=== PATIENT | male | born 1955 | race Caucasian/White ===

== ENCOUNTER 2024-05-12 13:37 | Emergency (ER) | payer OTHER, SELFPAY ==
[2024-05-12 13:40] VITALS: BP 177/74; PULSE 95; TEMP 36.6; O2SAT 97; BMI 20.8
--- NOTE | 2024-05-12 13:44 | XR_ITS ---
The [address] [address] Patient Name: MILAGROS VÁZQUEZ MRN: [id number] date: 1955 Sex: M Assigned Patient Location: ED.MAIN Current Patient Location: Accession/Order Number: [id number] Exam Date: 05/12/2024 14:25 Report Date: 05/12/2024 15:19 At the request of: ADDIS CERNA Procedure: XR hand RT min 3V IMAGES REVIEWED: XR hand RT min 3V COMPARISON: None available. CLINICAL INDICATION: Trauma FINDINGS/IMPRESSION: 1. Acute comminuted mildly displaced and mildly impacted likely intra-articular fractures of the proximal shaft-base third metacarpal and the fourth metacarpal base. 2. On the lateral view posteriorly displaced fracture of the third metacarpal base with foreshortening, the majority of the articular surface of the third metacarpal base is not dislocated. 3. Questionable slight focal impaction deformity involving the ulnar aspect of the second metacarpal base on the frontal view. 4. Slight deformity of the ulnar aspect of the third DIP joint is chronic. Electronically authenticated by: LEELA PENNY Date: 05/12/2024 15:19
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
== END 2024-05-12 15:15 | disposition home or self-care (01) ==
PROVIDERS: Emergency Provider Emergency Medicine Emergency Medical Services
DX: S62.302A Unspecified fracture of third metacarpal bone, right hand, initial encounter for closed fracture (principal); S62.304A Unspecified fracture of fourth metacarpal bone, right hand, initial encounter for closed fracture; V43.52XA Car driver injured in collision with other type car in traffic accident, initial encounter
CPT/HCPCS: 73130; 99283

== ENCOUNTER 2024-05-20 09:26 | Outpatient (OUT) | payer OTHER, SELFPAY ==
--- NOTE | 2024-05-20 | XR_ITS ---
[address] [address] Patient Name: MILAGROS VÁZQUEZ MRN: [id number] date: 1955 Sex: M Assigned Patient Location: Current Patient Location: Accession/Order Number: [id number] Exam Date: 05/20/2024 09:28 Report Date: 05/21/2024 18:27 At the request of: REYNA KAUFMAN Procedure: XR hand RT min 3V EXAM: XR hand RT min 3V HISTORY: RIGHT HAND PAIN COMPARISON: 05/12/2024 FINDINGS/IMPRESSION: 1. Oblique fracture of the proximal third metacarpal. Mildly displaced transverse fracture of the proximal fourth metacarpal. Similar alignment as compared to the prior examination. 2. No significant joint degeneration. 3. Normal alignment of the carpus. Scapholunate and lunotriquetral intervals are maintained. Electronically authenticated by: DEVEN MOLINA Date: 05/21/2024 18:27
--- OUTSIDE RECORDS SUMMARY | 2024-05-20 09:39 | XMS_ITS | CCD ---
Author Organization [facility] Care Team Providers Care Food Product Inspector Name Role Phone HERMINIO DEGE Attending Unavailable Unavailable Primary Care Provider Unavailabl e Medications Current Medications Medication Drug Class(es) Dates Sig (Normalized) Sig (Original) cephalexin 500 mg oral capsule (1 source) Cephalosporin Antibacterial Start: 10-10-2019 End: 10-17-2019 take 1 capsule by mouth three times daily cephALEXin (KEFLEX) 500 MG capsule Take 1 capsule by mouth 3 times daily for 7 days 21 capsule 0 10/10/2019 10/17/2019 Active Completed/Discontinued Medications Medication Drug Class(es) Dates Sig (Normalized) Sig (Original) 10 ml lidocaine hydrochloride 10 mg/ml injection (1 source) Antiarrhythmic, Amide Local Anesthetic Start: 10-10-2019 End: 10-10-2019 lidocaine 1 % injection 5 mL Problems Problem Classification Problem Date Documented Da te Episodic/Chronic Open wounds of extremities (1 source) Laceration of index finger Episodic Results Test Name Value Interpretation Reference Range Facil ity Lab - Toxicology Resultson 0 01-19-2018 Lab - Toxicology Results [id number] 7F#1.00OTGTIFF [facility] Drug Test Panel 10 018 Drug Screen Complete Collected [facility] Comment on above: Performed By: #### [id number] ####[facility] (DEFAULT)[address] [place] [address] Vital Signs Date Time Vital Sign Value Performing Clinician Nickii litmorris 10-10-2019 11:33-0500 Body height 175.3 cm Herminio Edge MD Work Phone: [facility] [employer] Work Phone: 10-10-2019 11:33-0500 Body mass index (BMI) [Ratio] 16.39 kg/m2 Herminio Edge MD Work Phone: [employer] Work Phone: 10-10-2019 11:33-0500 Body temperature 97.9 [degF] Herminio Edge MD Work Phone: [employer] Work Phone: 10-10-2019 11:33-0500 Body weight 50.35 kg Herminio Edge MD Work Phone: [employer] Work Phone: 10-10-2019 11:33-0500 Diastolic blood pressure 78 mm[Hg] Herminio Edge MD Work Phone: [employer] Work Phone: 10-10-2019 11:33-0500 Heart rate 88 /min Herminio Edge MD Work Phone: [employer] Work Phone: 10-10-2019 11:33-0500 Respiratory rate 18 /min Herminio Edge MD Work Phone: [employer] Work Phone: 10-10-2019 11:33-0500 SaO2% (BldA) [Mass fraction] 100 % Herminio Edge MD Work Phone: [employer] Work Phone: 10-10-2019 11:33-0500 Systolic blood pressure 193 mm[Hg] Herminio Edge MD Work Phone: [employer] Work Phone: Encounters Encounter Date Encounter Type Care Provider Facility Start: 10-10-2019 End: 10-10-2019 [facility] Start: 10-10-2019 End: 10-10-2019 Emergency department patient visit Herminio Edge MD Work Phone: [facility] ED Comment on above: Laceration of right index finger without foreign body without damage to nail, initial encounter (Primary Dx) Start: 01-16-2018 End: 01-16-2018 Ambulatory Facility:[facility] Plan of Treatment Date Care Activity Detail Author Start: 05-12-2019 Influenza vaccination Flu vaccine (# 1) [employer] Phone: Immunizations Immunization Date Immunization Notes Care Provider Fa cility 10-10-2019 tetanus toxoid, redu sancho diphtheria toxoid, and acellular pertussis vaccine, adsorbed Herminio Edge MD Work Phone: [employer] Phone: 10-10-2019 diphtheria, tetanus toxoids and acellular pertussis vaccine, unspecified formulation Herminio Edge MD Work Phone: [employer] Phone: Social History Date Type Detail Facility Start: 10-10-2019 Tobacco smoking status NHIS Never sm oker [employer] Phone: Sex Assigned At Not on file [employer] Phone: Evaluation note Note Date & Type Note Facility Evaluation note Diagnosis Laceration of right index finger without foreign body without damage to nail, initial encounter- Primary documented in this encounter [employer] Phone: Hospital Discharge instructions Attachments Note Date & Type Note Facility Hospital Discharge instructions The following attachments cannot be sent through Care Everywhere.Hand Laceration: Stitches (Danish)documented in this encounter [employer] Phone: Summary Purpose Family History No Family History Records FoundNo Family History Records Found Advance Directives Documents on File Type Date 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 FOR RECORDS PERTAINING TO PATIENTS WHO ARE OR HAVE BEEN ENROLLED IN A CHEMICAL DEPENDENCY/SUBSTANCEABUSE PROGRAM, SOME INFORMATION MAY BE OMITTED. This clinical summary was aggregated from multiple sources. Caution should be exercised in using it in the provision of clinical care. This summary normalizes information from multiple sources, and as a consequence, information in this document may materially change the coding, format and clinical context of patient data. In addition, data may be omitted in some cases. CLINICAL DECISIONS SHOULD BE BASED ON THE PRIMARY CLINICAL RECORDS. [facility] [employer] [facility]. provides no warranty or guarantee of the accuracy or completeness of information in this document.
== END 2024-05-20 09:27 | disposition home or self-care (01) ==
LOC: EC 09:26
PROVIDERS: Visit Provider Orthopaedic Surgery
DX: S62.302D Unspecified fracture of third metacarpal bone, right hand, subsequent encounter for fracture with routine healing (principal); S62.304D Unspecified fracture of fourth metacarpal bone, right hand, subsequent encounter for fracture with routine healing
CPT/HCPCS: 73130

== ENCOUNTER 2024-05-27 07:58 | Outpatient (OUT) | payer OTHER, SELFPAY ==
--- NOTE | 2024-05-27 | XR_ITS ---
The [address] [address] Patient Name: MILAGROS VÁZQUEZ MRN: [id number] date: 1955 Sex: M Assigned Patient Location: Current Patient Location: Accession/Order Number: [id number] Exam Date: 05/27/2024 08:10 Report Date: 05/29/2024 07:45 At the request of: REYNA KAUFMAN Procedure: XR hand RT min 3V PROCEDURE: XR hand RT min 3V COMPARISON: 05/20/2024 HISTORY: RIGHT HAND PAIN FINDINGS: BONES:Stable fractures along the base of the second third and fourth metacarpals likely extending to the articular surface. No significant bone formation or callus formation. No new fracture or dislocation. SOFT TISSUES:Negative. No visible soft tissue swelling. EFFUSION:None visible. OTHER: Negative. XR/XR hand RT min 3V IMPRESSION: Stable fractures base of the second third and fourth metacarpals Electronically authenticated by: MILAGROS HUDSON Date: 05/29/2024 07:45
--- OUTSIDE RECORDS SUMMARY | 2024-05-27 08:02 | XMS_ITS | CCD ---
Author Organization [facility] Care Team Providers Care Hair Dryer Name Role Phone HERMINIO EDGE Attending Unavailable Unavailable Primary Care Provider Unavailabl [...] 0 01-19-2018 Lab - Toxicology Results [id number] 7F#1.00OTGTIFF [facility] Drug Test Panel 10 018 Drug Screen Complete Collected [facility] Comment on above: Performed By: #### [id number] ####[facility] (DEFAULT)[address] [place] [address] Vital Signs Date Time Vital Sign Value Performing Clinician Nickii litmorris 10-10-2019 11:33-0500 Body height 175.3 cm Herminio Edge MD Work Phone: [facility] Work Phone: 10-10-2019 11:33-0500 Body mass index (BMI) [Ratio] 16.39 kg/m2 Herminio Edge MD Work Phone: [employer] Work Phone: 10-10-2019 11:33-0500 Body temperature 97.9 [degF] Herminio Edge MD Work Phone: [employer] Work Phone: 10-10-2019 11:33-0500 Body weight 50.35 kg Herminio Edge MD Work Phone: [employer] Work Phone: 10-10-2019 11:33-0500 Diastolic blood pressure 78 mm[Hg] Herminio Edge MD Work Phone: [employer] Work Phone: 10-10-2019 11:33-0500 Heart rate 88 /min Herminio Edge MD Work Phone: [employer] Work Phone: 10-10-2019 11:33-0500 Respiratory rate 18 /min Herminio Edge MD Work Phone: [employer] Work Phone: 10-10-2019 11:33-0500 SaO2% (BldA) [Mass fraction] 100 % Herminio Edge MD Work Phone: [employer] Work Phone: 10-10-2019 11:33-0500 Systolic blood pressure 193 mm[Hg] Herminio Edge MD Work Phone: [employer] Work Phone: Encounters Encounter Date Encounter Type Care Provider Facility Start: 10-10-2019 End: 10-10-2019 [facility] Start: 10-10-2019 End: 10-10-2019 Emergency department patient visit Herminio Edge MD Work Phone: [facility] ED Comment on above: Laceration of right index finger without foreign body without damage to nail, initial encounter (Primary Dx) Start: 01-16-2018 End: 01-16-2018 Ambulatory Facility:[facility] Plan of Treatment Date Care Activity Detail Author Start: 05-12-2019 Influenza vaccination Flu vaccine (# 1) [employer] Phone: Immunizations Immunization Date Immunization Notes Care Provider Fa cility 10-10-2019 tetanus toxoid, redu sancho diphtheria toxoid, and acellular pertussis vaccine, adsorbed Herminio Edge MD Work Phone: [employer] Phone: 10-10-2019 diphtheria, tetanus toxoids and acellular pertussis vaccine, unspecified formulation Herminio Edge MD Work Phone: [employer] Phone: Social History Date Type Detail Facility Start: 10-10-2019 Tobacco smoking status NHIS Never sm oker [employer] Phone: Sex Assigned At Not on file [employer] Phone: Evaluation note Note Date & Type Note Facility Evaluation note Diagnosis Laceration of right index finger without foreign body without damage to nail, initial encounter- Primary documented in this encounter [employer] Phone: Hospital Discharge instructions Attachments Note Date & Type Note Facility Hospital Discharge instructions The following attachments cannot be sent through Care Everywhere.Hand Laceration: Stitches ([place])documented in this encounter [employer] Phone: Summary Purpose Family History No Family History Records FoundNo Family History Records Found Advance Directives Documents on File Type Date 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 [facility]. provides no warranty or guarantee of the accuracy or completeness of information in this document.
== END 2024-05-27 07:59 | disposition home or self-care (01) ==
PROVIDERS: Visit Provider Orthopaedic Surgery
DX: S62.304D Unspecified fracture of fourth metacarpal bone, right hand, subsequent encounter for fracture with routine healing (principal); S62.302D Unspecified fracture of third metacarpal bone, right hand, subsequent encounter for fracture with routine healing
CPT/HCPCS: 73130

== ENCOUNTER 2024-06-10 08:44 | Outpatient (OUT) | payer OTHER, SELFPAY ==
--- NOTE | 2024-06-10 | XR_ITS ---
The [address] [address] Patient Name: MILAGROS VÁZQUEZ MRN: [id number] date: 1955 Sex: M Assigned Patient Location: Current Patient Location: Accession/Order Number: [id number] Exam Date: 06/10/2024 08:45 Report Date: 06/11/2024 05:32 At the request of: REYNA KAUFMAN Procedure: XR hand RT min 3V PROCEDURE: XR hand RT min 3V HISTORY: RIGHT HAND PAIN COMPARISON: XR hand right 05/27/2024 FINDINGS: BONES:Subacute fracture along the proximal medial margin of the third metacarpal slightly displaced fragment. SOFT TISSUES:Soft tissue swelling of the hand. EFFUSION:None visible. OTHER: Negative. XR/XR hand RT min 3V IMPRESSION: 1. Images were obtained to cast material which slightly limits evaluation. 2. Stable alignments and no appreciable early bone changes involving the third metacarpal fracture. Electronically authenticated by: REYNA DIOP Date: 06/11/2024 05:32
--- OUTSIDE RECORDS SUMMARY | 2024-06-10 09:04 | XMS_ITS | CCD ---
Author Organization [facility] Care Team Providers Care Car Painter Name Role Phone HERMINIO EDGE Attending Unavailable [...] 0 01-19-2018 Lab - Toxicology Results [id number] 7F#1.00OTGTIFF [facility] Drug Test Panel 10 018 Drug Screen Complete Collected [facility] Comment on above: Performed By: #### [id number] ####[facility] (DEFAULT)[address] [place] [address] Vital Signs Date Time Vital Sign Value Performing Clinician Nickii litmorris 10-10-2019 11:33-0500 Body height 175.3 cm Herminio Edge MD Work Phone: [facility] [employer] Work Phone: 10-10-2019 11:33-0500 Body mass index (BMI) [Ratio] 16.39 kg/m2 Herminio Edge MD Work Phone: [employer] Work Phone: 10-10-2019 11:33-0500 Body temperature 97.9 [degF] Herminio Edge MD Work Phone: [employer] Work Phone: 10-10-2019 11:33-0500 Body weight 50.35 kg Herminio Edge MD Work Phone: [employer] Work Phone: 10-10-2019 11:33-0500 Diastolic blood pressure 78 mm[Hg] Herminio Edge MD Work Phone: [employer] Work Phone: 10-10-2019 11:33-0500 Heart rate 88 /min Herminio Edge MD Work Phone: [employer] Work Phone: 10-10-2019 11:33-0500 Respiratory rate 18 /min Herminio Edge MD Work Phone: [employer] Work Phone: 10-10-2019 11:33-0500 SaO2% (BldA) [Mass fraction] 100 % Herminio Edge MD Work Phone: [employer] Work Phone: 10-10-2019 11:33-0500 Systolic blood pressure 193 mm[Hg] Herminio Edge MD Work Phone: [employer] Work Phone: Encounters Encounter Date Encounter Type Care Provider Facility Start: 10-10-2019 End: 10-10-2019 [facility] Start: 10-10-2019 End: 10-10-2019 Emergency department patient visit Herminio Edge MD Work Phone: [facility] ED Comment on above: Laceration of right index finger without foreign body without damage to nail, initial encounter (Primary Dx) Start: 01-16-2018 End: 01-16-2018 Ambulatory Facility:[facility] Plan of Treatment Date Care Activity Detail Author Start: 05-12-2019 Influenza vaccination Flu vaccine (# 1) [employer] Phone: Immunizations Immunization Date Immunization Notes Care Provider Fa cility 10-10-2019 tetanus toxoid, redu sancho diphtheria toxoid, and acellular pertussis vaccine, adsorbed Herminio Edge MD Work Phone: [employer] Phone: 10-10-2019 diphtheria, tetanus toxoids and acellular pertussis vaccine, unspecified formulation Herminio Edge MD Work Phone: [employer] Phone: Social History Date Type Detail Facility Start: 10-10-2019 Tobacco smoking status NHIS Never sm oker [employer] Phone: Sex Assigned At Not on file [employer] Phone: Evaluation note Note Date & Type Note Facility Evaluation note Diagnosis Laceration of right index finger without foreign body without damage to nail, initial encounter- Primary documented in this encounter [employer] Phone: Hospital Discharge instructions Attachments Note Date & Type Note Facility Hospital Discharge instructions The following attachments cannot be sent through Care Everywhere.Hand Laceration: Stitches (Swiss)documented in this encounter [employer] Phone: Summary Purpose Family History No Family History Records FoundNo Family History Records Found Advance Directives Documents on File Type Date Recorded 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 [facility] [facility]. provides no warranty or guarantee of the accuracy or completeness of information in this document.
== END 2024-06-10 08:45 | disposition home or self-care (01) ==
LOC: EC 08:44
PROVIDERS: Visit Provider Orthopaedic Surgery
DX: S62.304D Unspecified fracture of fourth metacarpal bone, right hand, subsequent encounter for fracture with routine healing (principal); S62.302D Unspecified fracture of third metacarpal bone, right hand, subsequent encounter for fracture with routine healing
CPT/HCPCS: 73130

== ENCOUNTER 2024-07-08 09:10 | Outpatient (OUT) | payer OTHER, SELFPAY ==
--- NOTE | 2024-07-08 | XR_ITS ---
The [address] [address] Patient Name: MILAGROS VÁZQUEZ MRN: [id number] date: 1955 Sex: M Assigned Patient Location: Current Patient Location: Accession/Order Number: [id number] Exam Date: 07/08/2024 09:11 Report Date: 07/09/2024 11:52 At the request of: REYNA KAUFMAN Procedure: XR hand RT min 3V PROCEDURE: XR hand RT min 3V HISTORY: RIGHT HAND PAIN COMPARISON: XR hand right 06/10/2024 FINDINGS: BONES:Oblique nondisplaced fracture through the proximal diametaphyseal junction of the third metacarpal. No appreciable intra-articular extension. Slight increased density fracture line, but no significant callus formation. SOFT TISSUES:No visible soft tissue swelling. EFFUSION:None visible. OTHER: Negative. XR/XR hand RT min 3V IMPRESSION: 1. Stable normal alignment of the third metacarpal fracture with subtle changes of early bone healing. Electronically authenticated by: REYNA DIOP Date: 07/09/2024 11:52
--- OUTSIDE RECORDS SUMMARY | 2024-07-08 09:28 | XMS_ITS | CCD ---
Author Organization [facility] Care Team Providers Care Quality Assurance Nurse Name Role Phone HERMINIO EDGE Attending Unavailable [...] 0 01-19-2018 Lab - Toxicology Results [id number] [facility] Drug Test Panel 10 018 Drug Screen Complete Collected [facility] Comment on above: Performed By: #### [id number] ####[facility] (DEFAULT)[address] [place] [address] Vital Signs Date Time Vital Sign Value Performing Clinician Nickii litmorris 10-10-2019 11:33-0500 Body height 175.3 cm Herminio Edge MD Work Phone: [facility] [employer] Work Phone: 10-10-2019 11:33-0500 Body mass index (BMI) [Ratio] 16.39 kg/m2 Herminio Edge MD Work Phone: [employer] Work Phone: 10-10-2019 11:33-0500 Body temperature 97.9 [degF] Herminio Edge MD Work Phone: [employer] Work Phone: 10-10-2019 11:33-0500 Body weight 50.35 kg Herminio Edge MD Work Phone: [employer] Work Phone: 10-10-2019 11:33-0500 Diastolic blood pressure 78 mm[Hg] Herminio Edge MD Work Phone: [employer] Work Phone: 10-10-2019 11:33-0500 Heart rate 88 /min Herminio Edge MD Work Phone: [employer] Work Phone: 10-10-2019 11:33-0500 Respiratory rate 18 /min Herminio Edge MD Work Phone: [employer] Work Phone: 10-10-2019 11:33-0500 SaO2% (BldA) [Mass fraction] 100 % Herminio Edge MD Work Phone: [employer] Work Phone: 10-10-2019 11:33-0500 Systolic blood pressure 193 mm[Hg] Herminio Edge MD Work Phone: [employer] Work Phone: Encounters Encounter Date Encounter Type Care Provider Facility Start: 10-10-2019 End: 10-10-2019 [facility] Start: 10-10-2019 End: 10-10-2019 Emergency department patient visit Herminio Edge MD Work Phone: [facility] Comment on above: Laceration of right index finger without foreign body without damage to nail, initial encounter (Primary Dx) Start: 01-16-2018 End: 01-16-2018 Ambulatory Facility:[facility] Plan of Treatment Date Care Activity Detail Author Start: 05-12-2019 Influenza vaccination Flu vaccine (# 1) [facility] Phone: Immunizations Immunization Date Immunization Notes Care Provider Fa cility 10-10-2019 tetanus toxoid, redu sancho diphtheria toxoid, and acellular pertussis vaccine, adsorbed Herminio Edge MD Work Phone: [facility] Phone: 10-10-2019 diphtheria, tetanus toxoids and acellular pertussis vaccine, unspecified formulation Herminio Edge MD Work Phone: [facility] Phone: Social History Date Type Detail Facility Start: 10-10-2019 Tobacco smoking status NHIS Never sm oker [facility] Phone: Sex Assigned At Not on file [facility] Phone: Evaluation note Note Date & Type Note Facility Evaluation note Diagnosis Laceration of right index finger without foreign body without damage to nail, initial encounter- Primary documented in this encounter [facility] Phone: Hospital Discharge instructions Attachments Note Date & Type Note Facility Hospital Discharge instructions The following attachments cannot be sent through Care Everywhere.Hand Laceration: Stitches (Citizen [place])documented in this encounter [facility] Phone: Summary Purpose Family History No Family History Records FoundNo Family History Records Found Advance Directives Documents on File Type Date 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 [facility] [employer] [facility]. provides no warranty or guarantee of the accuracy or completeness of information in this document.
== END 2024-07-08 09:11 | disposition home or self-care (01) ==
LOC: EC 09:10
PROVIDERS: Visit Provider Orthopaedic Surgery
DX: S62.304D Unspecified fracture of fourth metacarpal bone, right hand, subsequent encounter for fracture with routine healing (principal); S62.302D Unspecified fracture of third metacarpal bone, right hand, subsequent encounter for fracture with routine healing
CPT/HCPCS: 73130

== ENCOUNTER 2024-08-05 08:46 | Outpatient (OUT) | payer MEDICARE, SELFPAY ==
--- NOTE | 2024-08-05 | XR_ITS ---
The [address] [address] Patient Name: MILAGROS VÁZQUEZ MRN: [id number] date: 1955 Sex: M Assigned Patient Location: Current Patient Location: Accession/Order Number: [id number] Exam Date: 08/05/2024 08:46 Report Date: 08/07/2024 14:35 At the request of: REYNA KAUFMAN Procedure: XR hand RT min 3V PROCEDURE: XR hand RT min 3V HISTORY: RIGHT HAND PAIN COMPARISON: XR hand right 07/08/2024 FINDINGS: BONES:Oblique fracture of proximal third metacarpal with slight increased density at fracture line. No significant displacement. SOFT TISSUES:No visible soft tissue swelling. EFFUSION:None visible. OTHER: Negative. XR/XR hand RT min 3V IMPRESSION: 1. Stable, normal alignment, and ongoing bone healing of third metacarpal fracture. Electronically authenticated by: REYNA DIOP Date: 08/07/2024 14:35
--- OUTSIDE RECORDS SUMMARY | 2024-08-05 08:57 | XMS_ITS | CCD ---
Author Organization [facility] Care Team Providers Care Material Damage Adjuster Name Role Phone HERMINIO EDGE Attending Unavailable [...] 0 01-19-2018 Lab - Toxicology Results [id number] [facility] Drug Test Panel 10 018 Drug Screen Complete Collected [facility] Comment on above: Performed By: #### [id number] ####[facility] (DEFAULT)[address] [place] [address] Vital Signs Date Time Vital Sign Value Performing Clinician Nickii litmorris 10-10-2019 11:33-0500 Body height 175.3 cm Herminio Edge MD Work Phone: [facility] [employer] Work Phone: 10-10-2019 11:33-0500 Body mass index (BMI) [Ratio] 16.39 kg/m2 Herminio Edge MD Work Phone: [facility] Work Phone: 10-10-2019 11:33-0500 Body temperature 97.9 [degF] Herminio Edge MD Work Phone: [facility] Work Phone: 10-10-2019 11:33-0500 Body weight 50.35 kg Herminio Edge MD Work Phone: [facility] Work Phone: 10-10-2019 11:33-0500 Diastolic blood pressure 78 mm[Hg] Herminio Edge MD Work Phone: [facility] Work Phone: 10-10-2019 11:33-0500 Heart rate 88 /min Herminio Edge MD Work Phone: [facility] Work Phone: 10-10-2019 11:33-0500 Respiratory rate 18 /min Herminio Edge MD Work Phone: [facility] Work Phone: 10-10-2019 11:33-0500 SaO2% (BldA) [Mass fraction] 100 % Herminio Edge MD Work Phone: [facility] Work Phone: 10-10-2019 11:33-0500 Systolic blood pressure 193 mm[Hg] Herminio Edge MD Work Phone: [facility] Work Phone: Encounters Encounter Date Encounter Type Care Provider Facility Start: 10-10-2019 End: 10-10-2019 [facility] Start: 10-10-2019 End: 10-10-2019 Emergency department patient visit Herminio Edge MD Work Phone: [facility] ED Comment on above: Laceration of right index finger without foreign body without damage to nail, initial encounter (Primary Dx) Start: 01-16-2018 End: 01-16-2018 Ambulatory Facility:[facility] Plan of Treatment Date Care Activity Detail Author Start: 05-12-2019 Influenza vaccination Flu vaccine (# 1) [facility] Phone: Immunizations Immunization Date Immunization Notes Care Provider Fa cility 10-10-2019 tetanus toxoid, redu sancho diphtheria toxoid, and acellular pertussis vaccine, adsorbed Herminio Edge MD Work Phone: [facility] Phone: 10-10-2019 diphtheria, tetanus toxoids and acellular pertussis vaccine, unspecified formulation Herminio Edge MD Work Phone: [facility] Phone: Social History Date Type Detail Facility Start: 10-10-2019 Tobacco smoking status NHIS Never sm oker [facility] Phone: Sex Assigned At Not on file [facility] Phone: Evaluation note Note Date & Type Note Facility Evaluation note Diagnosis Laceration of right index finger without foreign body without damage to nail, initial encounter- Primary documented in this encounter [facility] Phone: Hospital Discharge instructions Attachments Note Date & Type Note Facility Hospital Discharge instructions The following attachments cannot be sent through Care Everywhere.Hand Laceration: Stitches ([place])documented in this encounter [facility] Phone: Summary Purpose Family History No Family History Records FoundNo Family History Records Found Advance Directives Documents on File Type Date Recorded 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 [facility] [employer] [facility]. provides no warranty or guarantee of the accuracy or completeness of information in this document.
== END 2024-08-05 08:47 | disposition home or self-care (01) ==
LOC: EC 08:46
PROVIDERS: Visit Provider Orthopaedic Surgery
DX: S62.304D Unspecified fracture of fourth metacarpal bone, right hand, subsequent encounter for fracture with routine healing (principal); S62.302D Unspecified fracture of third metacarpal bone, right hand, subsequent encounter for fracture with routine healing
CPT/HCPCS: 73130